=== PATIENT | male | born 1980 | race American Indian/Alaskan Native ===

== ENCOUNTER 2017-05-12 03:27 | Emergency (ER) | payer SELFPAY ==
[2017-05-12 03:51] VITALS: BP 127/77
== END 2017-05-12 09:02 | disposition left against medical advice (07) ==
LOC: ED 03:27
DX: T14.8XXA Other injury of unspecified body region, initial encounter (principal); Z53.21 Procedure and treatment not carried out due to patient leaving prior to being seen by health care provider; W45.8XXA Other foreign body or object entering through skin, initial encounter; Y93.89 Activity, other specified; Y99.8 Other external cause status; Y92.89 Other specified places as the place of occurrence of the external cause